=== PATIENT | male | born 1930 | race Caucasian/White ===

== ENCOUNTER → 2017-03-31 | Day surgery (SDC) | payer MEDICARE, OTHER ==
[~2017-03-31] VITALS: Ht 172.7 cm; Wt 67.1 kg
== END | disposition home or self-care (01) ==
LOC: SDC 11:58
DX: N30.20 Other chronic cystitis without hematuria (principal); N31.9 Neuromuscular dysfunction of bladder, unspecified; N40.1 Benign prostatic hyperplasia with lower urinary tract symptoms; N39.41 Urge incontinence; N48.1 Balanitis; N47.1 Phimosis; N30.80 Other cystitis without hematuria; I10 Essential (primary) hypertension; I25.2 Old myocardial infarction; Z86.73 Personal history of transient ischemic attack (TIA), and cerebral infarction without residual deficits; M19.90 Unspecified osteoarthritis, unspecified site; Z95.0 Presence of cardiac pacemaker; Z79.82 Long term (current) use of aspirin; Z79.899 Other long term (current) drug therapy; Z88.0 Allergy status to penicillin; Z88.8 Allergy status to other drugs, medicaments and biological substances
CPT/HCPCS: C1758; J0585; J2704; Q9967